=== PATIENT | female | born 1945 | race Caucasian/White ===

== ENCOUNTER 2016-11-26 12:42 | Emergency (ER) | payer OTHER, MEDICARE ==
[~2016-11-26] VITALS: Ht 154.9 cm; Wt 45.0 kg
[~2016-11-26 12:42] MED LIST: ALPR-138 PO; ESTR.3 PO; MIRA0.12 PO; PARO10TA
[2016-11-26 12:44] VITALS: BP 132/61; PULSE 58; RESP 14; TEMP 98.3; O2SAT 94
[2016-11-26 18:41] VITALS: BP 127/57; PULSE 50; RESP 16; O2SAT 95
[2016-11-26] MEDS ORDERED: ONDANSETRON HCL 4 MG/2 ML VIAL IM ONE (18:45)
[2016-11-26] MEDS ORDERED: SODIUM CHLORIDE 0.9% FLUSH 5 ML FLUSH IVF PRN ×2 (18:45)
[2016-11-26] MEDS ORDERED: SODIUM CHLORID 0.9% 500 ML INJ 500 ML IV ONE ×2 (18:45→20:00)
[2016-11-26] MEDS ORDERED: MORPHINE SULFATE 4 MG/ML INJ IV PUSH ONE (18:45)
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
[2016-11-26 19:04] VITALS: O2SAT 98
[2016-11-26 19:08] LABS: AUTOMATED NEUTROPHIL # 3.7 TH/MM3 (1.8-7.7); BASOPHIL % 0.7 % (0.0-2.0); EOSINOPHIL # 0.1 TH/MM3 (0-0.4); EOSINOPHIL % 1.3 % (0.0-4.0); HEMATOCRIT 40.9 % (35.0-46.0); HEMO FLAGS DIFF FINAL; LYMPH % 31.4 % (9.0-44.0); MEAN CELL VOLUME 96.4 FL (80.0-100.0); MEAN CORPUSCULAR HEMOGLOBIN 33.4 PG (27.0-34.0); MEAN CORPUSCULAR HGB CONC 34.6 % (32.0-36.0); MONO % 8.9 % (0.0-8.0); NEUT % 57.7 % (16.0-70.0); PLATELET COUNT 202 TH/MM3 (150-450); RED BLOOD COUNT 4.24 MIL/MM3 (4.00-5.30); RED CELL DISTRIBUTION WIDTH 13.2 % (11.6-17.2); WHITE BLOOD COUNT 6.4 TH/MM3 (4.0-11.0)
[2016-11-26 19:19] LABS: APTT (PATIENT) 29.2 SEC (24.3-30.1); PROTHROMBIN TIME - PATIENT 11.4 SEC (9.8-11.6)
[2016-11-26 19:38] LABS: BICARBONATE 26.3 MEQ/L (21.0-32.0); POTASSIUM 4.1 MEQ/L (3.5-5.1)
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
[2016-11-26] MEDS ORDERED: IOHEXOL 350 MG/ML 10 ML VIAL (for RAD DIAG) IV ONE (20:09)
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
[2016-11-26 21:07] LABS: BLOOD, URINE NEG (NEG); GLUCOSE,URINE NEG (NEG); KETONE, URINE NEG (NEG); NITRITE,URINE NEG (NEG); PH, URINE 6.5 (5.0-8.5); SQUAMOUS EPITHELIAL CELL URINE <1 /hpf (0-5); URINE COLOR LIGHT-YELLOW (YELLW/STRAW)
[2016-11-26 21:19] LABS: COMMENT (UR) CULT NOT INDICATED; CULTURE IF INDICATED CULT NOT INDICATED
--- NOTE | 2016-11-27 22:30 | EKG ---
Date Performed: 11/26/2016 Time Performed: 19:02:11 PTAGE: 71 years EKG: SINUS BRADYCARDIA POSSIBLE LEFT ATRIAL ENLARGEMENT BORDERLINE ECG PREVIOUS TRACING : 03/22/2010 14.53 Compared to prior tracing no significant change DOCTOR: Eduin Mireles Interpretating Date/Time 11/27/2016 22:29:33
== END 2016-11-26 21:32 | disposition home or self-care (01) ==
LOC: NEPC 12:42
DX: S09.90XA Unspecified injury of head, initial encounter (principal); S16.1XXA Strain of muscle, fascia and tendon at neck level, initial encounter; E87.1 Hypo-osmolality and hyponatremia; R00.1 Bradycardia, unspecified; I10 Essential (primary) hypertension; E78.00 Pure hypercholesterolemia, unspecified; J44.9 Chronic obstructive pulmonary disease, unspecified; Z72.0 Tobacco use; V43.52XA Car driver injured in collision with other type car in traffic accident, initial encounter; Y99.8 Other external cause status; Z79.82 Long term (current) use of aspirin
CPT/HCPCS: 70450; 70486; 71010; 71260; 72125; 72170; 73070; 73130; 74177; 80048; 81001; 85025; 85610; 85730; 93005; 96360; 99285; J7040; L0150; Q9967

== ENCOUNTER 2018-08-26 06:32 | Observation (INO) ==
[2018-08-26] MEDS ORDERED: Thrombin Topical Soln 5,000 UNIT Vial TOPICAL ONE (06:49)
[2018-08-26] MEDS ORDERED: Gelatin Size 100 Topical Foam ONE (06:49)
[2018-08-26] MEDS ORDERED: Dexmedetomidine Inj 200 MCG/2 ML Vial ONE (06:56)
[2018-08-26] MEDS ORDERED: Propofol Inj 500 MG/50 ML Vial ONE (06:57)
[2018-08-26] MEDS ORDERED: Artificial Tears Opth Oint 3.5 GM Tube ONE (06:57)
[2018-08-26] MEDS ORDERED: fentaNYL Citrate Inj 250 MCG/5 ML Ampul ONE (06:58)
[2018-08-26] MEDS ORDERED: Ketamine Inj 50 MG/5 ML Syringe IV.PUSH ONE (06:58)
--- NOTE | 2018-08-26 07:24 | XR ---
EXAM DATE: 08/26/2018 7:21 AM EST AGE/SEX: 73 years / Female INDICATIONS: Evaluate for pneumonia,pneumothorax, or communicable disease. CLINICAL DATA: This is the patient's initial encounter. Patient reports that signs and symptoms have been present for 1 day and indicates a pain score of 0/10. MEDICAL/SURGICAL HISTORY: Chronic obstructive pulmonary disease. None. COMPARISON: [facility] [place], CHEST SINGLE AP, 11/26/2016. . FINDINGS: No new focal pleural or parenchymal opacities.. The cardiomediastinal contours are unremarkable. Os seous structures are intact. CONCLUSION: 1. No acute abnormality or significant interval change. Electronically signed by: Zac Barnes MD 08/26/2018 7:23 AM EST
[2018-08-26] MEDS ORDERED: Chlorhexidine Gluconate 2% 1 Pack (2 Cloths) TOPICAL SCH (07:37)
[2018-08-26] MEDS ORDERED: Metoprolol Tartrate 25 MG Tablet PO SCH (07:37)
[2018-08-26] MEDS ORDERED: Vancomycin Inj 1,000 MG in Sodium Chlor 0.9% Inj 250 ML IV.SIG SCH (08:00)
[2018-08-26] MEDS ORDERED: Sodium Chlor 0.9% Inj 500 ML IV.SIG SCH (08:00)
[2018-08-26] MEDS: Sod Chloride 0.9% Inj 1,000 ML IV.SIG SCH (08:25)
[2018-08-26] MEDS ORDERED: Lidocaine PF 1% Inj 5 ML Syringe OTHER ONE (08:29)
[2018-08-26 08:34] LABS: Baso # (Auto) 0.1 th/mm3 (0.0-0.2); Baso % (Auto) 0.8 % (0.0-2.0); Eos # (Auto) 0.1 th/mm3 (0.0-0.4); Eos % (Auto) 2.3 % (0.0-4.0); Hematocrit 39.4 % (35.0-46.0); Hemoglobin 13.5 gm/dL (11.6-15.3); Lymph # (Auto) 1.2 th/mm3 (1.0-4.8); Lymph % (Auto) 18.7 % (9.0-44.0); Mean Corpuscular HGB Conc 34.3 % (32.0-36.0); Mean Corpuscular Hemoglobin 34.6 pg (27.0-34.0); Mean Corpuscular Volume 101.1 fL (80.0-100.0); Mean Platelet Volume 8.6 fL (7.0-11.0); Mono # (Auto) 0.5 th/mm3 (0.0-0.9); Mono % (Auto) 7.7 % (0.0-8.0); Neut # (Auto) 4.5 th/mm3 (1.8-7.7); Neut % (Auto) 70.5 % (16.0-70.0); Platelet Count 181 th/mm3 (150-450); Red Cell Distribution Width 14.3 % (11.6-17.2); White Blood Count 6.3 th/mm3 (4.0-11.0)
[2018-08-26] MEDS ORDERED: ceFAZolin 2 GM Premix Inj 2 GM/50 ML PIGGYBACK IV.SIG ONE (08:37)
[2018-08-26 08:45] LABS: INR 1.1 Ratio; Prothrombin Time 10.7 sec (9.8-11.6)
[2018-08-26 09:17] LABS: Alanine Aminotransferase 29 U/L (10-53)
[2018-08-26 09:20] LABS: Alkaline Phosphatase 71 U/L (45-117); Total Protein 6.9 g/dL (6.4-8.2)
[2018-08-26 09:36] LABS: Albumin 3.7 g/dL (3.4-5.0); Anion Gap 6 meq/L (5-15); Aspartate Aminotransferase 28 U/L (15-37); Blood Urea Nitrogen 13 mg/dL (7-18); Calcium 8.4 mg/dL (8.5-10.1); Carbon Dioxide 24.6 meq/L (21.0-32.0); Chloride 106 meq/L (98-107); Glomerular Filtration Rate Greater Than 89 mL/min (>89); Glucose,Random 93 mg/dL (74-106); Sodium 137 meq/L (136-145)
[2018-08-26 09:44] LABS: Potassium 4.4 meq/L (3.5-5.1)
[2018-08-26] MEDS ORDERED: *morphine SULFATE 4 MG/ML PERIprocedure ONLY ONE (12:42)
[2018-08-26] MEDS ORDERED: Bisacodyl 10 MG Supp RECTAL PRN (12:47)
[2018-08-26] MEDS ORDERED: ALPRAZolam 0.25 MG Tablet PO PRN (13:09)
[2018-08-26] MEDS ORDERED: VIT C E ZN COPPR LUTEIN ZEAXAN PO SCH (13:15)
--- NOTE | 2018-08-26 13:20 | XR ---
EXAM DATE: 08/26/2018 1:12 PM EST AGE/SEX: 73 years / Female INDICATIONS: Fusion C4,C5 and C5,C6 with screw and plate placement. CLINICAL DATA: This is the patient's initial encounter. Patient reports that signs and symptoms have been present for 1 day and indicates a pain score of Nonresponsive. MEDICAL/SURGICAL HISTORY: None. None. COMPARISON: No prior exams available for comparison. FINDINGS: There is anterior cervical fusion with a plate anteriorly from C4-C6. The vertebral bodies are normal in alignment on the lateral view. CONCLUSION: Postsurgical changes as above. Electronically signed by: Robert Moody MD 08/26/2018 1:18 PM EST
[2018-08-26] MEDS: Sod Chloride 0.9% Inj 1,000 ML IV.CONT SCH ×2 (13:30→23:44)
[2018-08-26] MEDS: ceFAZolin 2 GM Premix Inj 2 GM/50 ML PIGGYBACK IV.SIG SCH (18:11)
--- NOTE | 2018-08-26 18:36 | ECG ---
Date Performed: 08/26/2018 Time Performed: 06:57:04 PTAGE: 73 years EKG: Sinus rhythm WITH OCCASIONAL ECTOPIC PREMATURE COMPLEXES BORDERLINE ECG PREVIOUS TRACING : 11/26/2016 19.02 Since the previous tracing, no significant change noted DOCTOR: Ephraim Hancock Interpretating Date/Time 08/26/2018 18:34:37
[2018-08-26] MEDS: Morphine Sulfate Inj 2 MG/ML Vial IV.PUSH PRN ×2 (19:44→22:09)
[2018-08-26] MEDS: Senna/Docusate Sodium 8.6/50 MG Tablet PO SCH (22:11)
[2018-08-27] MEDS: ceFAZolin 2 GM Premix Inj 2 GM/50 ML PIGGYBACK IV.SIG SCH ×2 (00:53→08:18)
[2018-08-27] MEDS: Acetaminophen/Codeine 300/30 MG Tablet PO PRN ×2 (00:53→10:13)
[2018-08-27 05:45] VITALS: O2SAT 97
[2018-08-27] MEDS: Senna/Docusate Sodium 8.6/50 MG Tablet PO SCH (08:10)
[2018-08-27] MEDS: Sertraline 50 MG Tablet PO SCH ×2 (08:11→10:13)
[2018-08-27] MEDS: Sod Chloride 0.9% Inj 1,000 ML IV.SIG SCH (08:18)
[2018-08-27] MEDS ORDERED: traZODone 100 MG Tablet PO SCH (09:00)
[2018-08-27] MEDS ORDERED: Allopurinol 100 MG Tablet PO SCH (09:00)
[2018-08-27] MEDS: Sod Chloride 0.9% Inj 1,000 ML IV.CONT SCH (10:05)
[2018-08-27 13:06] VITALS: BP 155/70; PULSE 58; RESP 18; TEMP 98
--- NOTE | 2018-08-27 13:31 | P.DS ---
Date of admission: 08/26/18 12:47 Primary care physician: Wilfredo Back MD, R3 Brief History from admission: Ms. Garcia is a 73 year old female who suffers from cervical pain. She has anterolisthesis at C4-5 See 4 5 with an osteophytic/disk complex, as well as a disk herniation at C5-6, with significant stenosis at both levels, she has clinical evidence of a C5 and C6 radiculopathy. DS: Medications - Discharge Medications Prescriptions: hydrocodone-acetaminophen 2 tab PO Q4H PRN #15 tab PRN Reason: Pain Scale 6 To 10 DS: Summary Hospital Course: Ms. Garcia underwent a C4-5, C5-6 anterior cervical discectomy and arthrodesis using PEEK cage, autologous bone and Simplicity plate and screws on 08/26/18. - Time Spent with Patient Total time spent providing and/or coordinating discharge services: Less than 30 minutes - Quality: VTE Deep Vein Thrombosis/Pulmonary Embolism Present on Admission: No Exam Vital signs: Vital Signs 08/26/18 13:45 08/26/18 16:00 08/26/18 20:00 Temperature 98.1 F 98.1 F Pulse Rate 61 62 64 Respiratory Rate 16 20 18 Blood Pressure 163/70 H 178/76 H 159/67 H Pulse Oximetry 98 98 93 L 08/26/18 20:54 08/27/18 00:00 08/27/18 04:00 Temperature 98.3 F 97.7 F Pulse Rate 59 L 56 L Respiratory Rate 5 L 18 18 Blood Pressure 142/81 H 146/66 H Pulse Oximetry 95 97 08/27/18 08:00 08/27/18 12:00 Temperature 97.8 F 98.0 F Pulse Rate 56 L 58 L Respiratory Rate 16 18 Blood Pressure 147/77 H 155/70 H Pulse Oximetry 97 97 Intake & Output 08/26/18 08/27/18 08/27/18 18:59 06:59 18:59 Intake Total 2160 / 2160 1100 / 1100 2049 Output Total 630 / 630 55 / 55 Balance 1530 / 1530 1045 / 1045 2049 Weight 48 kg 50.5 kg Intake: IV 1100 / 1100 2049 NS Inj 1,000 ML @ 100 mls/hr IV 1000 / 1000 1000 / 1000 .CONT .Q10H [facility] Rx#:[id number] LR 1000 mL Inj 1,000 ML @ 30 1000 / 1000 mls/hr IV.SIG .Q24H [facility] Rx#: [id number] Ancef 2 GM Premix Inj 2 gm In 100 / 100 50 / 50 50 ml @ 100 mls/hr IV.SIG Q8H [facility] Rx#:[id number] Oral 360 / 360 Anesthesia Amount 1800 / 1800 Output: Estimated Blood Loss 100 / 100 Urine Amount (Catheter) 500 / 500 Indwelling Urethral Catheter 500 / 500 Wound Drainage 55 / 55 # 1 Anterior Neck Jan 55 / Other: # Voids 1 1 Date of Last Bowel Movement 08/24/18 Weight On Admission 48 kg Results Procedures completed during hospitalization: C4-5, C5-6 anterior cervical discectomy and arthrodesis using PEEK cage, autologous bone and Simplicity late and screws - Impressions ITS Impressions Cervical Spine X-Ray 08/26/18 00:00 CONCLUSION: Postsurgical changes as above. Chest X-Ray 08/26/18 00:00 CONCLUSION: 1. No acute abnormality or significant interval change. Discharge Plan - Discharge Disposition Patient Disposition: Discharge Home - Discharge Condition Condition: Stable - Discharge Order Discharge Orders: Discharge Order (Routine); Ordered 08/27/18 Ordered By: Iris Shrestha - Physicians Team Primary Care Provider: Wilfredo Back Attending Provider: Hansel Bergeron - Rxs /Orders / Referrals /Forms Prescriptions: New hydrocodone-acetaminophen 10-325 mg Tablet 2 tab PO Q4H PRN (Reason: Pain Scale 6 To 10) Qty: 15 RF: 0 Continue acetaminophen-codeine 300-30 mg Tablet 1 tab PO Q6H PRN (Reason: Pain) alendronate 70 mg Tablet 70 mg PO QWEEK allopurinol 100 mg Tablet 100 mg PO DAILY alprazolam 0.25 mg Tablet 0.25 mg PO BID PRN (Reason: Anxiety) aspirin [Aspirin Low Dose] 81 mg Tablet,Delayed Release (Dr/Ec) 81 mg PO DAILY cyclobenzaprine 10 mg Tablet 20 mg PO QID PRN (Reason: Pain) multivitamin [Daily Multiple] Tablet 1 tab PO DAILY naproxen sodium 220 mg Capsule 220 mg PO BID PRN (Reason: Pain) sertraline 50 mg Tablet 50 mg PO DAILY trazodone 100 mg Tablet 100 mg PO DAILY vit C,X-Hn-gfjft-lutein-zeaxan [PreserVision AREDS-2] [id number] mg-unit-mg -mg Capsule 1 tab PO QAM AND QHS Referrals: Wilfredo Back MD, R3 [Primary Care Provider] - See Instructions ( Please call the physician's office to book the appointment to be seen within [].) - Discharge Instructions Patient Printed Instructions: Laminectomy (DC)
--- NOTE | 2018-09-02 16:09 | P.OP ---
Preoperative Diagnosis: Cervical degenerative disk disease with disk prolapse and radiculopathy Postoperative Diagnosis: Cervical degenerative disk disease with disk prolapse and radiculopathy Date of procedure: 09/02/18 Procedure: C4-5, C5-6 anterior cervical discectomy, interbody arthrodesis using peek cage filled with autologous bone graft, C4-5 C5-6 instrumented fixation using simplicity plate and screws Anesthesia: WHITNEY Surgeon: Hansel Bergeron MD Tobacco Curer: Danuta Velázquez Pathology: none sent Operation and Findings: INDICATIONS FOR THE PROCEDURE Ms. Garcia is a 73 year old female who suffers from cervical pain. She has anterolisthesis at C4-5 and 4 5 with an osteophytic/disk complex, as well as a disk herniation at C5-6, with significant stenosis at both levels, she has clinical evidence of a C5 and C6 radiculopathy. She has failed maximum nonsurgical management including multiple modalities of conservative treatment as well as pain management interventions by an interventional pain specialist. A surgical decompression and arthrodhesis were indicated. The [id number] details of the procedure, indications, alternatives, risks and potential complications were fully discussed with the patient. The patient fully understood. All The questions were answered. No guarantees were given. The patient voiced requesting the procedure and provided informed consents. The patient was offered the alternative of delaying the procedure and continuing with nonsurgical management. DETAILS OF THE SURGICAL PROCEDURE After the induction of general anesthesia, endotracheal intubation was performed. A Tirado catheter, bilateral JAYME hose, and sequential compression devices were placed and kept throughout the procedure. Placement of electrodes for neurophysiological monitoring of the somatosensorial evoked potentials. motor evoked potentials, and EMG as well as laryngeal nerve monitoring was achieved. The patient was positioned supine on a Scooby table with the head over a gel doughnut. All pressure points were carefully padded with eggcrate mattress. The eyes were tapped shut after ointment was applied by the anesthesiologist to prevent corneal abrasion. A Dar hugger was placed over the exposed lower body to maintain control of the core body temperature. The electrophysiological team placed the needles and electrodes in their proper location and baseline SSEP's and motor evoked potentials were registered prior and after positioning and endotracheal intubation. The anterior cervical region was prepped and draped in the usual sterile fashion. A localizing x-ray was performed with a C-arm. The surgical procedure was performed in several steps as follow: SURGICAL APPROACH A skin incision was made along the medial cervical crease with a #10 blade. The dissection was carried out through the platysma exposing the sternocleidomastoid muscle. The cervical spine was approached following the fascial layers of the neck just medial to the anterior border of the sternocleidomastoid and carotid sheath by a combination of sharp and dull dissection. The omohyoid muscle was identified and carefully dissected laterally and the deep cervical fascia was carefully opened. The longus colli muscles were retracted to each side of the midline. A marker was placed at the disc space C5-6 and a cross-table lateral x-ray performed with a C-arm. SURGICAL DECOMPRESSION In order to decompress the anterior surface of the spinal cord it was necessary to preform a microsurgical resection of the disk at C4-5 and C5-6. At this point in the procedure the operating microscope was draped in the usual sterile fashion and brought to the field. The rest of the surgical procedure was performed using microdissection technique with the exception of the closure. Under the operative microscopic, a self-retaining retractor was placed underneath the longus colli muscle. Anterior osteophite spurs werte carefully removed with the Leksell. The annulus at C4-5 and C5-6 were incised with a #15 blade and microdiscectomy was then carefully carried out using angled curets and pituitary forceps. There were osteophitic/disk complexes mass effect and compression of the dural sac and nerve roots. The posterior longitudinal ligament was then elevated with an angled curet and incised with a 15 bladed knife. A careful resection of the posterior longitudinal ligament was carried out using a thin footplate 2 mm Kerrison. A nerve hook was used to assess the epidural space behing the vertebral bodies C5 and C6 in search for residual disk fragments. The margins of the posterior endplates at C4-5 and C5-6 were carefully drilled and undercut with a TPS drill under high magnification. The decompression was then carried out laterally, and a bilateral foraminotomy was performed with a 2mm thin foot Kerrison. Then the vertebral bodies above and below the disk space were undercut using a 2 mm thin foot Kerrison. The epidural space was the systematically assessed with a nerve hook in search for disk fragments or scar tissue. An excellent decompression was achieved in both , the dural sac and bilateral exiting nerve roots. The incision was then irrigated with a large amount of antibiotic solution INTERBODY ARTHRODHESIS In order to avoid collapse of the disk space which would result in bilateral foraminal stenosis, and to increase the chances of a successful fusion, it was necessary to place an interbody cage filled with autologous bone. At this point of the procedure, the superior and inferior endplates were then evenly decorticated with a TPS drill. The use of a drill in combination with a curette allowed me to systematically remove the cartilaginous endplates, exposing healthy bone for the interbody arthrodesis. Fourteen millimeters distraction pins were then placed at the vertebral bodies adjacent to the disk space, and gentle distraction was applied. The size of the interbody cage was then assessed using different size spacers, and a rasp was used to ensure no residual cartilage. A PEEK cage of the appropriate size was selected, and the interbody arthrodesis was then preformed by carefully impacting a PEEK cage filled with autologous bone graft to the disc spaces C4-5 and C5-6. An excellent position of the cage was achieved. This was was confirmed anatomically by feeling the space posterior to the implant and distance to the anterior surface of the dural sac. Radiological confirmation of the position was performed with a cross lateral xray performed with the C-arm. INTERNAL INSTRUMENTAL FIXATION Once that the interbody device was in an appropriate position, it was necessary to stabilize the spine with anterior instrumentation. Anterior instrumentation has demonstrated to increase the rate of fusion, acelerate the patient's recovery, and decrease the rate of failed interbody grafts. At this point of the procedure, the distance between the vertebral bodies was carefully measures, and a Simplicity plate was brought to the field and presented in front of the vertebral bodies C4 C5 and C6. Load Manager holes were then drilled using the TPS drill, and the plate was then secured to the spine using self-drilling, self-tapping screws. Initially, the inferior right screw was inserted, followed by placement of the contralateral upper screw. The remanding screws were sequentially placed in a contra-lateral fashion. A proper purchase was achieved with all screws and the position of the cage, plate and screws, and alignment of the spine was assessed anatomically by direct visualization, and radiologically by performing a cross lateral xray of the cervical spine with the C-arm. CLOSURE The incision was irrigated with several liters of antibiotic solution. Hemostasis was achieved with a bipolar. The screws were locked to prevent backing out. A 7 mm Scooby-Fong drain was left in the prevertebral space and externalized through a separate stab incision. The incision was then closed in layers. 3-0 Vicryl with interrupted sutures was used to close the platysma and subcutaneous tissue. The skin was closed with 4-0 running subcuticular Vicryl and glue was applied to the skin. The drain was secured with a 3-0 nylon. At the end of the procedure the sponge, needle and instrument counts were all correct. The estimated blood loss was less than 50-60 cc. No blood transfusion was given. No intraoperative complications occurred. The patient received prophylactic antibiotics. The patient was then extubated and transferred to the recovery room in stable condition.
== END 2018-08-27 14:50 | disposition home or self-care (01) ==
LOC: HSDI 06:32 → HSDC 06:32 → N05 15:42
PROVIDERS: ADMIT Neurological Surgery; ATTEND Neurological Surgery